=== PATIENT | male | born 1965 | race Caucasian/White ===

== ENCOUNTER 2018-04-28 08:36 | Day surgery (SDC) | payer MEDICAID ==
[~2018-04-28 08:36] MED LIST: ACET1TAB12 PO; CEPH500T PO; cpm
[2018-04-28] MEDS ORDERED: ERTA1VIA (09:27)
[2018-04-28] MEDS ORDERED: CHOL10002 PO (09:28)
[2018-04-28] MEDS ORDERED: CELE-193 PO (09:28)
[2018-04-28] MEDS ORDERED: OMEP40CA37 PO (09:29)
[2018-04-28] MEDS ORDERED: ASPI-1265 PO (09:30)
[2018-04-28] MEDS ORDERED: OXYC-658 PO (09:30)
[2018-04-28] MEDS ORDERED: METO-384 PO (09:31)
[2018-04-28] MEDS ORDERED: GABA600T2 PO (09:32)
[2018-04-28] MEDS ORDERED: LIDOcaine 2% 5ml jelly ONE (09:46)
== END 2018-04-28 10:30 | disposition home or self-care (01) ==
LOC: WOUND CARE 08:36
PROVIDERS: ATTEND Surgery
DX: T81.89XA Other complications of procedures, not elsewhere classified, initial encounter (principal); L98.492 Non-pressure chronic ulcer of skin of other sites with fat layer exposed; I25.10 Atherosclerotic heart disease of native coronary artery without angina pectoris; I25.2 Old myocardial infarction; M22.40 Chondromalacia patellae, unspecified knee; I10 Essential (primary) hypertension; F10.10 Alcohol abuse, uncomplicated; F41.9 Anxiety disorder, unspecified; Z96.659 Presence of unspecified artificial knee joint; Y83.8 Other surgical procedures as the cause of abnormal reaction of the patient, or of later complication, without mention of misadventure at the time of the procedure
CPT/HCPCS: 11042; A6021; A6206; A6209; A6446

== ENCOUNTER 2018-05-05 09:08 | Day surgery (SDC) | payer MEDICAID ==
[~2018-05-05 09:08] MED LIST changes: -ACET1TAB12 PO; +ASPI-1265 PO; +CELE-193 PO; -CEPH500T PO; +CHOL10002 PO; +ERTA1VIA; +GABA600T2 PO; +METO-384 PO; +OMEP40CA37 PO; +OXYC-658 PO; -cpm
[2018-05-05] MEDS ORDERED: LIDOcaine 2% 5ml jelly ONE (09:49)
== END 2018-05-05 10:30 | disposition home or self-care (01) ==
LOC: WOUND CARE 09:08
PROVIDERS: ATTEND Surgery
DX: T81.89XD Other complications of procedures, not elsewhere classified, subsequent encounter (principal); L98.492 Non-pressure chronic ulcer of skin of other sites with fat layer exposed; I25.10 Atherosclerotic heart disease of native coronary artery without angina pectoris; M22.40 Chondromalacia patellae, unspecified knee; I10 Essential (primary) hypertension; F10.10 Alcohol abuse, uncomplicated; F41.9 Anxiety disorder, unspecified; Z96.659 Presence of unspecified artificial knee joint; Y83.8 Other surgical procedures as the cause of abnormal reaction of the patient, or of later complication, without mention of misadventure at the time of the procedure
CPT/HCPCS: 97597; A6021; A6206; A6209; A6446

== ENCOUNTER 2018-05-14 08:57 | Day surgery (SDC) | payer MEDICARE, MEDICAID ==
[2018-05-14] MEDS ORDERED: LIDOcaine/PRILOcaine 5gm cream TP ONE (09:44)
== END 2018-05-14 10:34 | disposition home or self-care (01) ==
LOC: WOUND CARE 08:57
PROVIDERS: ATTEND Surgery
DX: T81.89XD Other complications of procedures, not elsewhere classified, subsequent encounter (principal); L98.492 Non-pressure chronic ulcer of skin of other sites with fat layer exposed; I25.10 Atherosclerotic heart disease of native coronary artery without angina pectoris; I25.2 Old myocardial infarction; M22.40 Chondromalacia patellae, unspecified knee; I10 Essential (primary) hypertension; F10.10 Alcohol abuse, uncomplicated; F41.9 Anxiety disorder, unspecified; Z96.659 Presence of unspecified artificial knee joint; Y83.8 Other surgical procedures as the cause of abnormal reaction of the patient, or of later complication, without mention of misadventure at the time of the procedure
CPT/HCPCS: 11042; A6021; A6206; A6446

== ENCOUNTER 2018-06-02 09:32 | Outpatient (CLI) | payer MEDICARE, MEDICAID | END 2018-06-02 10:57 | disposition home or self-care (01) | LOC: WOUND CARE 09:32 | PROVIDERS: ATTEND Surgery | DX: T81.89XD Other complications of procedures, not elsewhere classified, subsequent encounter (principal); L98.492 Non-pressure chronic ulcer of skin of other sites with fat layer exposed; I25.10 Atherosclerotic heart disease of native coronary artery without angina pectoris; I25.2 Old myocardial infarction; M22.40 Chondromalacia patellae, unspecified knee; I10 Essential (primary) hypertension; F10.10 Alcohol abuse, uncomplicated; F41.9 Anxiety disorder, unspecified; Z96.659 Presence of unspecified artificial knee joint; Y83.8 Other surgical procedures as the cause of abnormal reaction of the patient, or of later complication, without mention of misadventure at the time of the procedure | CPT/HCPCS: 99215 ==

== ENCOUNTER 2018-09-03 09:39 | Outpatient (CLI) | payer MEDICARE, MEDICAID ==
[2018-09-03] MEDS ORDERED: CETI-102 PO (11:08)
== END 2018-09-03 13:00 | disposition home or self-care (01) ==
LOC: WOUND CARE 09:39
PROVIDERS: ATTEND Surgery
DX: T81.89XD Other complications of procedures, not elsewhere classified, subsequent encounter (principal); L98.492 Non-pressure chronic ulcer of skin of other sites with fat layer exposed; I25.10 Atherosclerotic heart disease of native coronary artery without angina pectoris; I25.2 Old myocardial infarction; M22.40 Chondromalacia patellae, unspecified knee; I10 Essential (primary) hypertension; F10.10 Alcohol abuse, uncomplicated; F41.9 Anxiety disorder, unspecified; Z96.659 Presence of unspecified artificial knee joint; Y83.8 Other surgical procedures as the cause of abnormal reaction of the patient, or of later complication, without mention of misadventure at the time of the procedure
CPT/HCPCS: 97605; A6222; A4456